=== PATIENT | male | born 1995 | race Caucasian/White ===

== ENCOUNTER 2016-12-03 14:58 | Emergency (ER) | payer SELFPAY ==
[~2016-12-03] VITALS: Wt 75.7 kg
[~2016-12-03 14:58] MED LIST: AMOXICILLIN500 M2 PO; AMOXICILLIN500 MG PO; AMOXICOT500 MG PO; AMOXIL250 M1 PO; AMOXIL250 MG/5 M PO; AMOXIL500 MG PO; BACTRIM DS 8001 TA1 PO; CATAFLAM50 MG PO; CEFADROXIL500 M1 PO; CEPHALEXIN500 M1 PO; CHILD'S CHEW1 CTB PO; DELTASONE10 MG PO; FLEXERIL10 MG PO; FLEXERIL5 MG PO; HYDROCODONE BIT1 T11 PO; IBU800 MG PO; IBUPROFEN 30 M800 MG PO; KEFLEX500 MG PO; MOTRIN CHI100 MG/5 M PO; MOTRIN400 MG PO; MOTRIN600 MG PO; MOTRIN800 MG PO; Motrin,Rufen800 MG PO; NAPROSYN500 MG PO; NKHM; NORFLEX100 MG PO; PEN-VEE K500 MG PO; PREDNICOT10 MG PO; PREDNISONE20 MG PO; SLEEPING PILL; TESSALON PERLE100 M1 PO; TRAZODONE100 MG; TYLENOL W/CODEI1 TA2 PO; TYLENOL WITH CO1 TA1 PO; ULTRAM50 MG PO; VIBRAMYCIN100 MG PO; ZANTAC150 MG PO; ZOFRAN ODT4 MG SL; ZOFRAN4 MG PO; ZYRTEC10 MG PO; Zofran4 MG PO
[2016-12-03 15:02] VITALS: BP 184/94
== END 2016-12-03 16:39 | disposition home or self-care (01) ==
LOC: ED 14:58
DX: S60.221A Contusion of right hand, initial encounter (principal); F17.200 Nicotine dependence, unspecified, uncomplicated; Z88.8 Allergy status to other drugs, medicaments and biological substances; W22.8XXA Striking against or struck by other objects, initial encounter; Y93.89 Activity, other specified; Y92.9 Unspecified place or not applicable; Y99.9 Unspecified external cause status

== ENCOUNTER 2017-09-03 20:44 | Emergency (ER) | payer SELFPAY ==
[~2017-09-03] VITALS: Ht 175.2 cm; Wt 72.6 kg
[2017-09-03 20:53] VITALS: BP 156/73
[2017-09-03] MEDS ORDERED: ANAPROX DS550 MG PO (22:07)
== END 2017-09-03 23:14 | disposition home or self-care (01) ==
LOC: ED 20:44
DX: S43.401A Unspecified sprain of right shoulder joint, initial encounter (principal); F17.200 Nicotine dependence, unspecified, uncomplicated; Z88.8 Allergy status to other drugs, medicaments and biological substances; W10.9XXA Fall (on) (from) unspecified stairs and steps, initial encounter; Y93.89 Activity, other specified; Y92.9 Unspecified place or not applicable; Y99.9 Unspecified external cause status

== ENCOUNTER 2018-01-24 19:27 | Emergency (ER) | payer SELFPAY ==
[~2018-01-24] VITALS: Wt 86.2 kg
[~2018-01-24 19:27] MED LIST changes: +ANAPROX DS550 MG PO
[2018-01-24 20:38] VITALS: BP 132/72
== END 2018-01-24 20:39 | disposition home or self-care (01) ==
LOC: ED 19:27
DX: S60.00XA Contusion of unspecified finger without damage to nail, initial encounter (principal); F17.200 Nicotine dependence, unspecified, uncomplicated; Z88.8 Allergy status to other drugs, medicaments and biological substances; W23.0XXA Caught, crushed, jammed, or pinched between moving objects, initial encounter; Y93.89 Activity, other specified; Y92.89 Other specified places as the place of occurrence of the external cause; Y99.8 Other external cause status

== ENCOUNTER 2018-06-24 16:02 | Emergency (ER) | payer OTHER ==
[~2018-06-24] VITALS: Ht 180.3 cm; Wt 81.2 kg
[2018-06-24 16:31] VITALS: BP 141/87
[2018-06-24] MEDS ORDERED: ZITHROMAX250 MG PO (17:04)
== END 2018-06-24 17:09 | disposition home or self-care (01) ==
LOC: ED 16:02
DX: J02.9 Acute pharyngitis, unspecified (principal); R11.2 Nausea with vomiting, unspecified; R52 Pain, unspecified; Z88.6 Allergy status to analgesic agent; Z98.890 Other specified postprocedural states

== ENCOUNTER 2018-07-30 07:24 | Emergency (ER) | payer OTHER ==
[~2018-07-30] VITALS: Wt 81.2 kg
[~2018-07-30 07:24] MED LIST changes: +ZITHROMAX250 MG PO
[2018-07-30 07:25] VITALS: BP 138/75
[2018-07-30] MEDS ORDERED: ZOVIRAX30 GM TP (08:28)
== END 2018-07-30 08:16 | disposition home or self-care (01) ==
LOC: ED 07:24
DX: B00.9 Herpesviral infection, unspecified (principal); Z88.8 Allergy status to other drugs, medicaments and biological substances; Z79.2 Long term (current) use of antibiotics

== ENCOUNTER 2018-10-31 19:30 | Emergency (ER) | payer OTHER ==
[~2018-10-31] VITALS: Ht 180.3 cm; Wt 85.7 kg
[~2018-10-31 19:30] MED LIST changes: +ZOVIRAX30 GM TP
[2018-10-31 19:32] VITALS: BP 143/82
[2018-10-31 20:15] LABS: BASO % 0.3 % (0.0-1.0); EOS # 0.3 10*3/uL (0.0-0.4); EOS % 2.5 % (1.0-4.0); HEMATOCRIT 44.5 % (42.0-52.0); HEMOGLOBIN 15.3 g/dl (14.0-18.0); LYMPH # 3.1 10*3/uL (1.3-4.4); LYMPH % 28.7 % (27.0-41.0); MEAN CELL VOLUME 86.9 fl (80.0-94.0); MEAN CORPUSCULAR HGB 29.9 pg (27.0-31.0); MEAN CORPUSCULAR HGB CONC 34.4 g/dl (33.0-37.0); MEAN PLATELET VOLUME 10.8 fl (9.6-12.3); MONO # 0.6 10*3/uL (0.1-1.0); MONO % 5.9 % (3.0-9.0); NEUT # 6.6 10*3/uL (2.3-7.9); NEUT % 62.2 % (47.0-73.0); PLATELET COUNT AUTOMATED 200 10*3/uL (130-400); RED BLOOD COUNT 5.12 10*6/uL (4.50-5.90); RED CELL DISTRI WIDTH 12.1 % (0-14.5); WHITE BLOOD COUNT 10.6 10*3/uL (4.8-10.8)
[2018-10-31 20:22] LABS: BILIRUBIN NEGATIVE (NEGATIVE); BLOOD NEGATIVE (NEGATIVE); CLARITY CLOUDY (CLEAR); COLOR YELLOW (YELLOW); GLUCOSE NEGATIVE (NEGATIVE); KETONE NEGATIVE (NEGATIVE); LEUKO ESTERASE NEGATIVE (NEGATIVE); NITRITE NEGATIVE (NEGATIVE); PH 6.5 (5.0-9.0); UROBILINOGEN 0.2 E.U./dl (0.2-1.0)
[2018-10-31 20:30] LABS: ALBUMIN 3.8 gm/dl (3.1-4.5); ALKALINE PHOSPHATASE 96 U/L (45-117); BUN 11 mg/dl (7-24); CHLORIDE 108 mmol/L (98-107); CREATININE 0.82 mg/dL (0.70-1.30); LIPASE 199 U/L (73-393); POTASSIUM 3.6 mmol/L (3.5-5.1); SGOT/AST 35 IU/L (3-35); SGPT/ALT 62 U/L (12-78); SODIUM 142 mmol/L (136-145); TOTAL PROTEIN 7.5 gm/dL (6.4-8.2)
[2018-10-31 20:38] LABS: BACTERIA 2+; RBC 0-2 rbc/hpf (0-2)
[2018-10-31] MEDS ORDERED: CYCLOBENZAPRINE5 M3 PO (20:57)
[2018-10-31] MEDS ORDERED: NAPROSYN500 MG PO (20:57)
== END 2018-10-31 21:07 | disposition home or self-care (01) ==
LOC: ED 19:30
PROVIDERS: Nurse Practitioner Family
DX: S39.011A Strain of muscle, fascia and tendon of abdomen, initial encounter (principal); F17.200 Nicotine dependence, unspecified, uncomplicated; Z88.6 Allergy status to analgesic agent; X50.0XXA Overexertion from strenuous movement or load, initial encounter; Y93.89 Activity, other specified; Y92.89 Other specified places as the place of occurrence of the external cause; Y99.8 Other external cause status

== ENCOUNTER 2018-12-07 16:44 | Emergency (ER) | payer OTHER ==
[~2018-12-07] VITALS: Ht 175.2 cm; Wt 85.7 kg
[~2018-12-07 16:44] MED LIST changes: +CYCLOBENZAPRINE5 M3 PO
[2018-12-07 16:45] VITALS: BP 142/66
[2018-12-07] MEDS ORDERED: SEPTDS PO (16:51)
[2018-12-07] MEDS ORDERED: Bactroban Oint22 GM T (16:51)
[2018-12-07] MEDS ORDERED: KEFLEX500 M1 PO (16:51)
== END 2018-12-07 17:05 | disposition home or self-care (01) ==
LOC: ED 16:44
DX: L02.211 Cutaneous abscess of abdominal wall (principal); R03.0 Elevated blood-pressure reading, without diagnosis of hypertension; F17.200 Nicotine dependence, unspecified, uncomplicated; Z88.8 Allergy status to other drugs, medicaments and biological substances; Z79.899 Other long term (current) drug therapy

== ENCOUNTER 2019-07-29 21:12 | Emergency (ER) | payer OTHER ==
[~2019-07-29] VITALS: Ht 175.2 cm; Wt 88.5 kg
[~2019-07-29 21:12] MED LIST changes: +Bactroban Oint22 GM T; +KEFLEX500 M1 PO; +SEPTDS PO
[2019-07-30] MEDS ORDERED: Motrin,Rufen800 MG PO (00:01)
[2019-07-30] MEDS ORDERED: Orphenadrine C100 MG PO (00:01)
[2019-07-30 00:21] VITALS: BP 120/72
== END 2019-07-30 00:22 | disposition home or self-care (01) ==
LOC: ED 21:12
DX: S46.911A Strain of unspecified muscle, fascia and tendon at shoulder and upper arm level, right arm, initial encounter (principal); Z88.8 Allergy status to other drugs, medicaments and biological substances; W11.XXXA Fall on and from ladder, initial encounter; Y93.89 Activity, other specified; Y92.89 Other specified places as the place of occurrence of the external cause; Y99.8 Other external cause status

== ENCOUNTER 2019-10-01 14:17 | Emergency (ER) | payer OTHER ==
[~2019-10-01] VITALS: Ht 175.2 cm; Wt 86.2 kg
[~2019-10-01 14:17] MED LIST changes: +Orphenadrine C100 MG PO
[2019-10-01 14:20] VITALS: BP 147/92
[2019-10-01] MEDS ORDERED: FLAGYL500 MG PO (15:02)
[2019-10-07 13:57] LABS: GONOCOCCUS BY NAA Positive (Negative)
== END 2019-10-01 15:38 | disposition home or self-care (01) ==
LOC: ED 14:17
PROVIDERS: Nurse Practitioner Family
DX: Z20.2 Contact with and (suspected) exposure to infections with a predominantly sexual mode of transmission (principal); Z88.8 Allergy status to other drugs, medicaments and biological substances

== ENCOUNTER 2020-01-05 21:54 | Emergency (ER) | payer OTHER ==
[~2020-01-05] VITALS: Wt 86.2 kg
[~2020-01-05 21:54] MED LIST changes: +FLAGYL500 MG PO
[2020-01-05 21:58] VITALS: BP 150/87
== END 2020-01-05 22:48 | disposition home or self-care (01) ==
LOC: ED 21:54
DX: H16.133 Photokeratitis, bilateral (principal); F17.200 Nicotine dependence, unspecified, uncomplicated; Z88.8 Allergy status to other drugs, medicaments and biological substances; Z79.899 Other long term (current) drug therapy

== ENCOUNTER → 2020-06-14 | Outpatient (CLI) | payer OTHER ==
[2020-06-15 11:10] LABS: HEP B CORE AB TOTAL Negative (Negative); HEP B CORE AB, IGM Negative (Negative); HEPATITIS B SURFACE AB Non Reactive (.); HEPATITIS B SURFACE AG Negative (Negative); HEPATITIS Be ANTIGEN Negative (Negative)
[2020-06-15 17:10] LABS: AB TO HEPATITIS Be AG Negative (Negative)
== END | disposition home or self-care (01) ==
LOC: RESCLI 03:11
PROVIDERS: Hospitalist
DX: Z11.3 Encounter for screening for infections with a predominantly sexual mode of transmission (principal); M54.12 Radiculopathy, cervical region; S99.911D Unspecified injury of right ankle, subsequent encounter; K21.9 Gastro-esophageal reflux disease without esophagitis; Z72.0 Tobacco use

== ENCOUNTER 2022-08-04 15:55 | Emergency (ER) | payer OTHER | END 2022-08-04 22:00 | disposition left against medical advice (07) | LOC: ED 15:55 | DX: Z53.21 Procedure and treatment not carried out due to patient leaving prior to being seen by health care provider (principal) ==

== ENCOUNTER → 2023-01-22 | Outpatient (CLI) | payer OTHER ==
[2023-01-22 17:23] LABS: BASO % 0.2 % (0.0-1.0); EOS # 0.3 10*3/uL (0.0-0.4); EOS % 2.1 % (1.0-4.0); LYMPH % 22.7 % (27.0-41.0); MEAN CELL VOLUME 85.4 fl (80.0-94.0); MEAN CORPUSCULAR HGB 29.5 pg (27.0-31.0); MEAN CORPUSCULAR HGB CONC 34.5 g/dl (33.0-37.0); MEAN PLATELET VOLUME 10.1 fl (9.6-12.3); MONO # 0.7 10*3/uL (0.1-1.0); NEUT # 9.1 10*3/uL (2.3-7.9); NEUT % 69.7 % (47.0-73.0); PLATELET COUNT AUTOMATED 232 10*3/uL (130-400); RED BLOOD COUNT 5.15 10*6/uL (4.50-5.90); RED CELL DISTRI WIDTH 11.9 % (0-14.5); WHITE BLOOD COUNT 13.1 10*3/uL (4.8-10.8)
[2023-01-22 17:38] LABS: ALKALINE PHOSPHATASE 94 U/L (46-116); BUN 9 mg/dl (9-23); CHLORIDE 105 mmol/L (98-107); POTASSIUM 3.8 mmol/L (3.4-5.1); SGPT/ALT 30 U/L (10-49); TOTAL PROTEIN 7.3 gm/dL (6.0-8.0)
[2023-01-22 17:48] LABS: BILIRUBIN Negative (Negative); BLOOD Negative (Negative); CLARITY Clear (Clear); COLOR Yellow (Yellow); GLUCOSE Negative (Negative); KETONE Trace (Negative); LEUKO ESTERASE Negative (Negative); NITRITE Negative (Negative); PH 5.5 (4.5-8.0); SPECIFIC GRAVITY >= 1.030 (1.001-1.030)
[2023-01-22 18:23] LABS: RBC 0-2 rbc/hpf (0-2); WBC 0-2 wbc/hpf (0-5)
[2023-01-23 06:08] LABS: HEPATITIS B SURFACE AB Non Reactive (.); HEPATITIS B SURFACE AG Negative (Negative)
== END | disposition home or self-care (01) ==
LOC: RESCLI 01:57
PROVIDERS: Internal Medicine; ATTEND Student in an Organized Health Care Education/Training Program
DX: Z11.3 Encounter for screening for infections with a predominantly sexual mode of transmission (principal); J35.1 Hypertrophy of tonsils; F17.210 Nicotine dependence, cigarettes, uncomplicated; F10.90 Alcohol use, unspecified, uncomplicated; Z98.890 Other specified postprocedural states; Z88.8 Allergy status to other drugs, medicaments and biological substances

== ENCOUNTER → 2023-02-19 | Outpatient (CLI) | payer OTHER | END | disposition home or self-care (01) | LOC: RESCLI 00:34 | PROVIDERS: ATTEND Internal Medicine | DX: K02.9 Dental caries, unspecified (principal); F10.90 Alcohol use, unspecified, uncomplicated; J35.1 Hypertrophy of tonsils; Z88.8 Allergy status to other drugs, medicaments and biological substances; Z71.6 Tobacco abuse counseling; Z98.890 Other specified postprocedural states; Z72.0 Tobacco use; Z79.899 Other long term (current) drug therapy ==

== ENCOUNTER 2023-05-14 16:52 | Emergency (ER) | payer OTHER ==
[~2023-05-14] VITALS: Wt 81.6 kg
[2023-05-14 17:06] VITALS: BP 145/75
== END 2023-05-14 20:20 | disposition short-term general hospital (02) ==
LOC: ED 16:52
DX: S66.123A Laceration of flexor muscle, fascia and tendon of left middle finger at wrist and hand level, initial encounter (principal); Z88.8 Allergy status to other drugs, medicaments and biological substances; Z98.890 Other specified postprocedural states; F90.9 Attention-deficit hyperactivity disorder, unspecified type; W26.8XXA Contact with other sharp object(s), not elsewhere classified, initial encounter; Y93.89 Activity, other specified; Y92.89 Other specified places as the place of occurrence of the external cause; Y99.8 Other external cause status

== ENCOUNTER → 2024-02-16 | Outpatient (CLI) | payer OTHER | END | disposition home or self-care (01) | LOC: WOUNDCARE 00:22 | PROVIDERS: ATTEND Nurse Practitioner Family | DX: S91.302D Unspecified open wound, left foot, subsequent encounter (principal); L03.116 Cellulitis of left lower limb; D72.829 Elevated white blood cell count, unspecified; R73.9 Hyperglycemia, unspecified; I10 Essential (primary) hypertension; F17.200 Nicotine dependence, unspecified, uncomplicated; Z90.79 Acquired absence of other genital organ(s); Z79.899 Other long term (current) drug therapy; X58.XXXD Exposure to other specified factors, subsequent encounter ==

== ENCOUNTER → 2024-02-23 | Outpatient (CLI) | payer OTHER | END | disposition home or self-care (01) | LOC: WOUNDCARE 02:05 | PROVIDERS: ATTEND Nurse Practitioner Family | DX: S91.302D Unspecified open wound, left foot, subsequent encounter (principal); L03.116 Cellulitis of left lower limb; D72.829 Elevated white blood cell count, unspecified; R73.9 Hyperglycemia, unspecified; I10 Essential (primary) hypertension; F17.200 Nicotine dependence, unspecified, uncomplicated; Z90.79 Acquired absence of other genital organ(s); Z98.890 Other specified postprocedural states; Z79.899 Other long term (current) drug therapy; X58.XXXD Exposure to other specified factors, subsequent encounter ==

== ENCOUNTER 2024-07-07 12:36 | Emergency (ER) | payer OTHER ==
[~2024-07-07] VITALS: Ht 175.2 cm; Wt 90.7 kg
[2024-07-07 12:49] VITALS: BP 131/94
[2024-07-07 13:20] LABS: BASO % 0.3 % (0.0-1.0); EOS # 0.2 10*3/uL (0.0-0.4); EOS % 1.5 % (1.0-4.0); LYMPH # 2.1 10*3/uL (1.3-4.4); LYMPH % 14.4 % (27.0-41.0); MEAN CELL VOLUME 85.2 fl (80.0-94.0); MEAN CORPUSCULAR HGB 29.2 pg (27.0-31.0); MEAN CORPUSCULAR HGB CONC 34.3 g/dl (33.0-37.0); MEAN PLATELET VOLUME 10.2 fl (9.6-12.3); MONO % 6.6 % (3.0-9.0); NEUT # 11.1 10*3/uL (2.3-7.9); NEUT % 76.8 % (47.0-73.0); PLATELET COUNT AUTOMATED 208 10*3/uL (130-400); RED BLOOD COUNT 4.93 10*6/uL (4.50-5.90); RED CELL DISTRI WIDTH 12.5 % (0-14.5); WHITE BLOOD COUNT 14.5 10*3/uL (4.8-10.8)
[2024-07-07 13:41] LABS: ALKALINE PHOSPHATASE 88 U/L (46-116); BUN 6 mg/dl (9-23); CHLORIDE 106 mmol/L (98-107); POTASSIUM 3.8 mmol/L (3.4-5.1); SGPT/ALT 33 U/L (5-49)
[2024-07-07] MEDS ORDERED: VIBRAMYCIN100 MG PO (13:52)
== END 2024-07-07 14:03 | disposition home or self-care (01) ==
LOC: ED 12:36
PROVIDERS: Internal Medicine
DX: S41.102A Unspecified open wound of left upper arm, initial encounter (principal); S41.101A Unspecified open wound of right upper arm, initial encounter; S31.109A Unspecified open wound of abdominal wall, unspecified quadrant without penetration into peritoneal cavity, initial encounter; L08.9 Local infection of the skin and subcutaneous tissue, unspecified; Z88.8 Allergy status to other drugs, medicaments and biological substances; Z79.2 Long term (current) use of antibiotics; Z98.890 Other specified postprocedural states; X58.XXXA Exposure to other specified factors, initial encounter; Y93.89 Activity, other specified; Y92.89 Other specified places as the place of occurrence of the external cause; Y99.8 Other external cause status